=== PATIENT | male | born 1945 | race Caucasian/White ===

== ENCOUNTER 2022-09-27 14:07 | Emergency (ER) | payer MEDICARE ==
[~2022-09-27] VITALS: Ht 172.7 cm; Wt 99.3 kg
[2022-09-27 15:28] LABS: HEMATOCRIT 41.5 % (42-54); MEAN CORPUSCULAR HEMOGLOBIN 30.6 pg (27.0-33.0); MEAN CORPUSCULAR VOLUME 92.8 fL (79-99); RED BLOOD CELL COUNT(AUTO) 4.47 MIL/uL (4.50-6.20); RED CELL DISTRIBUTION WIDTH 13.4 % (11.0-15.5); WHITE BLOOD COUNT (AUTO) 13.4 K/uL (4.8-10.8)
[2022-09-27 15:56] LABS: CREATININE 1.3 mg/dL (0.5-1.5); POTASSIUM 3.7 mmol/L (3.5-5.1)
[2022-09-27 16:06] LABS: ALBUMIN 3.3 g/dL (3.5-5.0); TOTAL PROTEIN, SERUM 6.5 g/dL (6.0-8.3)
[2022-09-27 16:55] LABS: APPEARANCE,URINE CLEAR (CLEAR); BILIRUBIN,URINE NEGATIVE (NEGATIVE); COLOR,URINE YELLOW (YELLOW); GLUCOSE, URINE (UA) 70 mg/dL (NEGATIVE); KETONES,URINE 5 mg/dL (NEGATIVE); LEUKOCYTE ESTERASE ,URINE NEGATIVE Leu/uL (NEGATIVE); NITRATE,URINE NEGATIVE (NEGATIVE); OCCULT BLOOD,URINE NEGATIVE (NEGATIVE); PH,URINE 5.5 (5.0-8.0); PROTEIN,URINE 70 mg/dL (NEGATIVE); UROBILINOGEN,URINE 0.2 mg/dL (0.2-1.0)
[2022-09-27 17:00] LABS: BACTERIA,URINE RARE /HPF (None Seen); MUCUS,URINE FEW LPF (None Seen); RBC,URINE 0-1 /HPF (0-1); SQUAMOUS EPITHELIAL CELL,UR RARE /HPF (0-2); YEAST,URINE BUDDING FEW /HPF (None Seen)
[2022-09-27] MEDS ORDERED: AMLODIPINE (17:49)
[2022-09-27] MEDS ORDERED: ATOR40TA69 PO (17:49)
[2022-09-27] MEDS ORDERED: CITA10TA13 PO (17:49)
[2022-09-27] MEDS ORDERED: LOSA50TA64 PO (17:49)
[2022-09-27] MEDS ORDERED: FINA5TAB41 PO (17:49)
[2022-09-27] MEDS ORDERED: TAMS-1 PO (17:49)
[2022-09-27] MEDS ORDERED: METF-910 PO (17:49)
[2022-09-27] MEDS ORDERED: ASPI-1197 PO (17:49)
[2022-09-27] MEDS ORDERED: GLIM2TAB30 PO (17:49)
[2022-09-27] MEDS ORDERED: CARB-38 PO (17:49)
[2022-09-27] MEDS ORDERED: CARV6.25 PO (17:49)
[2022-09-27] MEDS ORDERED: NIRM1TAB PO (19:47)
[2022-09-27] MEDS ORDERED: 0.9% NACL 500ML IV.SOLN 500 ML IV ONE ×2 (20:00→20:26)
[2022-09-27 20:57] VITALS: BP 122/70
== END 2022-09-27 21:08 | disposition home or self-care (01) ==
LOC: EDH 14:07
DX: U07.1 COVID-19 (principal); G20 Parkinson's disease; E11.9 Type 2 diabetes mellitus without complications; I25.10 Atherosclerotic heart disease of native coronary artery without angina pectoris; Z20.822 Contact with and (suspected) exposure to COVID-19
CPT/HCPCS: 99285; 70450; 71045; 87635; 84484; 80053; 85027; 87804 ×2; 81001; 36415; 93005; C9803; J7040